=== PATIENT | female | born 1945 | race Caucasian/White ===

== ENCOUNTER 2017-09-28 07:06 | Emergency (ER) | payer MEDICARE, BC ==
[2017-09-28 07:18] VITALS: BP 120/65
--- NOTE | 2017-09-28 07:43 | EDM.PDOC ---
ED HPI GENERAL MEDICAL PROBLEM - General Chief Complaint: General Stated Complaint: DIZZY Time Seen by Provider: 09/28/17 07:10 Source of Information: Reports: Patient, Old Records History Limitations: Reports: No Limitations - History of Present Illness INITIAL COMMENTS - FREE TEXT/NARRATIVE: Amelia comes to [facility] ED with sxs of dizziness ie sense of loss of balance and some light headiness over the past 24 hrs which seems worse this am. There is also some sensation of SOB with movement, in the absence of cough or change in 02 sat, currrently 97% on RA. She was experiencing a cold recently with some cough, but no nasal congestion, sinus congestion, or change in hearing quality. She also reports some loss of "circulation" when out walking distances of about a mile. There is no sxs of claudication, chest pain, palpitations, change in coordination or falls. - Related Data Allergies Allergy/AdvReac Type Severity Reaction Status Date / Time codeine Allergy Disorientat Verified 09/28/17 07:16 ion levofloxacin [From Levaquin] Allergy Cannot Verified 09/28/17 07:16 Remember nitrofurantoin Allergy Cannot Verified 09/28/17 07:16 [From Macrobid] Remember nitrofurantoin Allergy Cannot Verified 09/28/17 07:16 macrocrystalline Remember [From Macrobid] sulfamethoxazole Allergy Cannot Verified 09/28/17 07:16 [From Septra] Remember trimethoprim [From Septra] Allergy Cannot Verified 09/28/17 07:16 Remember Home Meds: Home Meds atorvaSTATin Calcium [Atorvastatin Calcium] 20 mg PO DAILY 03/03/14 [History] DULoxetine [Cymbalta] 60 mg PO DAILY 11/07/14 [History] Levothyroxine [Synthroid] 100 mcg PO DAILY 11/07/14 [History] Multivit-Min/FA/Lycopene/Lut [Centrum Silver Tablet] 1 tab PO BID 11/07/14 [ History] Polyvinyl Alcohol/Povidone [Refresh] 1 drop EYEBOTH ASDIRECTED PRN 11/07/14 [ History] Vit C/Edis Ac/Lut/Copper/ZnOx [Preservision Lutein Softgel] 1 cap PO BID [History] lamoTRIgine [Lamotrigine] 50 mg PO DAILY 11/07/14 [History] Past Medical History Genitourinary History: Reports: UTI, Recurrent Psychiatric History: Reports: Bipolar Endocrine/Metabolic History: Reports: Hypothyroidism - Past Surgical History Female Surgical History: Reports: Hysterectomy Social & Family History - Tobacco Use Smoking Status *Q: Never Smoker Second Hand Smoke Exposure: No - Caffeine Use Caffeine Use: Reports: Coffee - Alcohol Use Days Per Week of Alcohol Use: 1 Number of Drinks Per Day: 2 Total Drinks Per Week: 2 - Recreational Drug Use Recreational Drug Use: No - Living Situation & Occupation Living situation: Reports: ED ROS GENERAL - Review of Systems Review Of Systems: See Below Constitutional: Reports: Malaise HEENT: Reports: No Symptoms Respiratory: Reports: Shortness of Breath Cardiovascular: Reports: Lightheadedness Endocrine: Reports: No Symptoms GI/Abdominal: Reports: No Symptoms : Reports: No Symptoms Musculoskeletal: Reports: No Symptoms Skin: Reports: No Symptoms Neurological: Reports: Dizziness Psychiatric: Reports: No Symptoms Hematologic/Lymphatic: Reports: No Symptoms Immunologic: Reports: No Symptoms ED EXAM, GENERAL - Physical Exam Exam: See Below Exam Limited By: No Limitations General Appearance: Alert, WD/WN, No Apparent Distress Eye Exam: Bilateral Eye: EOMI, Normal Inspection, PERRL Ears: Normal External Exam, Normal TMs Nose: Normal Inspection Throat/Mouth: Normal Inspection, Normal Oropharynx Head: Atraumatic, Normocephalic Neck: Normal Inspection, Supple, Non-Tender, Full Range of Motion Respiratory/Chest: Lungs Clear, Normal Breath Sounds Cardiovascular: Normal Peripheral Pulses, Regular Rate, Rhythm, No Edema, No Gallop, No JVD, No Murmur, No Rub, Other (BP supine 106/53; sitting 83/50; standing 68/41) GI/Abdominal: Normal Bowel Sounds, Soft, Non-Tender, No Organomegaly, No Distention, Pelvis Stable Back Exam: Normal Inspection Extremities: Normal Inspection, Normal Range of Motion, Non-Tender Neurological: Alert, Oriented, CN II-XII Intact, Normal Cognition, Normal Gait, No Motor/Sensory Deficits Psychiatric: Normal Affect, Normal Mood Skin Exam: Warm, Dry, Intact, Normal Color Lymphatic: No Adenopathy Course - Vital Signs Text/Narrative:: Following assessment for apparent orthostatic hypotension, an IV was started in the LUE and patient was administered 2L of NS over the next 2 hours, with improvment in BP 107/51. Baseline labs were stable. Last Recorded V/S: Last Vital Signs Temp 37.6 C 09/28/17 07:17 Pulse 85 09/28/17 07:17 Resp 18 09/28/17 07:17 BP 120/65 09/28/17 07:17 Pulse Ox 96 09/28/17 07:17 Orthostatic Blood Pressure [ 68/41 Standing] Orthostatic Blood Pressure [ 83/50 Sitting] Orthostatic Blood Pressure [ 106/53 Supine] - Orders/Labs/Meds Orders: Active Orders 24 hr Category Date Time Status Orthostatic Vital Signs [RC] ASDIRECTED Care 09/28/17 07:34 Active Peripheral IV Insertion Adult [OM.PC] Routine Oth 09/28/17 07:53 Ordered EKG 12 Lead [EK] Routine Ther 09/28/17 07:30 Ordered Labs: Laboratory Tests 09/28/17 09/28/17 Range/Units 07:45 07:45 WBC 11.1 (4.5-12.0) X10-3/uL RBC 4.14 (3.23-5.20) x10(6)uL Hgb 12.6 (11.5-15.5) g/dL Hct 37.0 (30.0-51.3) % MCV 89.3 (80-96) fL MCH 30.4 (27.7-33.6) pg MCHC 34.1 (32.2-35.4) g/dL RDW 11.5 (11.5-15.5) % Plt Count 302 (125-369) X10(3)uL MPV 7.2 L (7.4-10.4) fL Add Manual Diff Yes Neutrophils % (Manual) 94 H (46-82) % Lymphocytes % (Manual) 3 L (13-37) % Monocytes % (Manual) 3 L (4-12) % Sodium 136 (135-145) mmol/L Potassium 4.0 (3.5-5.3) mmol/L Chloride 99 L (100-110) mmol/L Carbon Dioxide 27 (21-32) mmol/L BUN 20 H (7-18) mg/dL Creatinine 1.3 H (0.55-1.02) mg/dL Est Cr Clr Drug Dosing 33.78 mL/min Estimated GFR (MDRD) 41 L (>60) BUN/Creatinine Ratio 15.4 (9-20) Glucose 132 H (80-116) mg/dL Calcium 9.5 (8.6-10.2) mg/dL Meds: Medications Discontinued Medications Generic Name Dose Route Start Last Admin Trade Name Freq PRN Reason Stop Dose Admin Sodium Chloride 2,000 mls @ 999 mls/hr 09/28/17 08:00 09/28/17 09:27 Normal Saline IV 10/02/17 07:53 999 mls/hr ASDIRECTED ROHIT Administration Sodium Chloride 10 ml 09/28/17 07:53 09/28/17 08:10 Saline Flush FLUSH 10 ml ASDIRECTED PRN Administration Keep Vein Open Sodium Chloride 10 ml 09/28/17 07:53 Saline Flush FLUSH ASDIRECTED PRN Keep Vein Open Departure - Departure Time of Disposition: 10:20 Disposition: Home, Self-Care 01 Condition: Fair Clinical Impression: Orthostatic hypotension - Discharge Information Referrals: Micaela Hernandez, PERMIT COORDINATOR [Primary Care Provider] - Forms: ED Department Discharge Additional Instructions: Call and make an appointment with Dr Broussard today - Problem List & Annotations (1) Orthostatic hypotension SNOMED Code(s): 22723321 Code(s): I95.1 - ORTHOSTATIC HYPOTENSION Status: Acute Annotation/Comment :: Orthostatic hypotension, likely related to psychotrophic meds including Lamictal and Latuda. i suggested holding these meds, and follow up with psychiatrist regarding suspected drug interactions and side effects. - Problem List Review Problem List Initiated/Reviewed/Updated: Yes - My Orders Last 24 Hours: My Active Orders 09/28/17 07:30 EKG 12 Lead [EK] Routine 09/28/17 07:34 Orthostatic Vital Signs [RC] ASDIRECTED 09/28/17 07:53 Peripheral IV Insertion Adult [OM.PC] Routine - Assessment/Plan Last 24 Hours: My Active Orders 09/28/17 07:30 EKG 12 Lead [EK] Routine 09/28/17 07:34 Orthostatic Vital Signs [RC] ASDIRECTED 09/28/17 07:53 Peripheral IV Insertion Adult [OM.PC] Routine Plan: Follow up with psychiatrist this week.
[2017-09-28] MEDS ORDERED: Sodium Chloride 0.9% 10 ML Syringe FLUSH PRN ×2 (07:53)
[2017-09-28] MEDS: Sodium Chloride 0.9% 2,000 ML IV SCH ×2 (08:10→09:27)
== END 2017-09-28 10:30 | disposition home or self-care (01) ==
LOC: FB.ED 07:06
DX: I95.1 Orthostatic hypotension (principal); E03.9 Hypothyroidism, unspecified; Z88.5 Allergy status to narcotic agent; Z88.8 Allergy status to other drugs, medicaments and biological substances; Z88.1 Allergy status to other antibiotic agents; Z88.2 Allergy status to sulfonamides; Z79.899 Other long term (current) drug therapy
CPT/HCPCS: 36415; 80048; 85025; 93005; 96360; 96361; 99284; J7040; J7050

== ENCOUNTER 2024-09-09 08:17 | Emergency (ER) | payer BC, MEDICARE, OTHER ==
[2024-09-09] MEDS: Sodium Phosphate,Monobasic/Sodium Phosphate,Dibasic Enema 133 ML Bottle RECTAL ONE ×2 (08:42→10:23)
[2024-09-09] MEDS: Mineral Oil 133 ML BOTTLE RECTAL ONE (08:42)
[2024-09-09] MEDS: Magnesium Hydroxide 400 MG/5 ML Susp 30 ML Cup PO ONE (09:28)
[2024-09-09 10:33] VITALS: BP 121/82; PULSE 91
== END 2024-09-09 10:23 | disposition home or self-care (01) ==
LOC: FB.ED 08:17
DX: K59.00 Constipation, unspecified (principal); E03.9 Hypothyroidism, unspecified; Z88.1 Allergy status to other antibiotic agents; Z88.2 Allergy status to sulfonamides; Z88.8 Allergy status to other drugs, medicaments and biological substances; Z79.899 Other long term (current) drug therapy; Z90.710 Acquired absence of both cervix and uterus
CPT/HCPCS: 74018; 99283; A9270

== ENCOUNTER 2024-12-28 08:26 | Emergency (ER) | payer MEDICARE ==
[2024-12-28] MEDS: Magnesium Citrate Solution 296 ML Bottle PO ONE (08:40)
[2024-12-28] MEDS: Sodium Chloride 0.9% 1,000 ML IV SCH (08:40)
[2024-12-28] MEDS: Glycerin Adult 2 GM Supp RECTAL ONE (09:04)
[2024-12-28 10:49] VITALS: BP 120/76; PULSE 105
== END 2024-12-28 10:48 | disposition home or self-care (01) ==
LOC: FB.ED 08:26
DX: K59.00 Constipation, unspecified (principal); E03.9 Hypothyroidism, unspecified; Z90.710 Acquired absence of both cervix and uterus; Z79.899 Other long term (current) drug therapy; Z79.890 Hormone replacement therapy; Z88.8 Allergy status to other drugs, medicaments and biological substances; Z88.2 Allergy status to sulfonamides; Z88.1 Allergy status to other antibiotic agents; Z88.5 Allergy status to narcotic agent
CPT/HCPCS: 74018; 96360; 99283-25; A9270-GY; J7030